=== PATIENT | male | born 1950 | race Caucasian/White ===

== ENCOUNTER 2018-11-29 04:31 | Emergency (ER) | payer MEDICARE ==
[2015-10-22 06:15] VITALS: BP 119/58
[2018-11-29] MEDS ORDERED: IPRATROPIUM/ALBUTEROL SULFATE 3 ML AMPUL.NEB NEB ONE (04:52)
[2018-11-29] MEDS ORDERED: FUROSEMIDE 40 MG/4 ML VIAL ONE (04:52)
[2018-12-07 19:24] LABS: APPEARANCE,URINE CLEAR (CLEAR); COLOR,URINE YELLOW (YELLOW)
[2018-12-07 19:25] LABS: OCCULT BLOOD,URINE NEGATIVE (NEGATIVE); UROBILINOGEN URINE 0.2 Eu (0.2-1.0)
[2018-12-07 19:39] LABS: BASOPHILS % 0.3 % (0.0-1.5); NEUTROPHILS # 6.1 # k/uL (1.4-7.7); eGFR (Non-African) 58
== END 2018-11-29 07:10 ==
LOC: ED 04:31
DX: J96.01 Acute respiratory failure with hypoxia (principal); J96.02 Acute respiratory failure with hypercapnia; R44.1 Visual hallucinations; R53.1 Weakness
CPT/HCPCS: 36415; 36600; 71020; 71250; 80053; 81002; 82803; 84484; 85025; 87086; 93005; 96374; 99285; J1940; S1016